=== PATIENT | male | born 1960 | race Caucasian/White ===

== ENCOUNTER 2016-04-18 13:26 | Inpatient (IN) | payer MEDICARE, OTHER ==
[2016-04-18 13:45] LABS: ALLEN'S TEST PASS; BEb 0.2 (+/- 2); TCO2 28.5 MMOL/L (23-27)
[2016-04-18 13:46] LABS: ABG Draw Site Right Radial
[2016-04-18 13:46] LABS: AUTOMATED BASOPHIL 0.8 % (0-2); AUTOMATED EOSINOPHIL 1.2 % (0-5); AUTOMATED LYMPH 14.4 % (17-44); AUTOMATED MONOCYTE 7.8 % (3-10); AUTOMATED NEUTROPHIL 75.8 % (45-76); MPV 6.9 fL (7.4-10.4)
[2016-04-18 14:02] LABS: BLOOD UREA NITROGEN 18 MG/DL (9-20); CALC CORRECTED 8.5 MG/DL (8.4-10.2); CALCIUM 8.4 MG/DL (8.4-10.2); CALCULATED OSMOLALITY 266 MOs/Kg (270-290); CHLORIDE 97 mEq/L (98-107); GLUCOSE 133 MG/DL (70-99); SODIUM LEVEL 136 mEq/L (137-146); TOTAL PROTEIN 7.3 G/DL (6.3-8.2)
[2016-04-18 14:07] LABS: PARTIAL THROMB. TIME 20.8 SEC (22-35)
[2016-04-18] MEDS ORDERED: ACETAMINOPHEN 325 MG/TAB TABLET PO ONE (14:38)
--- NOTE | 2016-04-18 14:54 | DIRPT ---
CLINICAL DATA: Shortness of breath. Accident drug overdose EXAM: PORTABLE CHEST 1 VIEW COMPARISON: March 02, 2016 FINDINGS: Port-A-Cath tip in superior vena cava. No pneumothorax. There is atelectatic change in the left base. The lungs elsewhere are clear. Heart size and pulmonary vascularity are normal. No adenopathy. IMPRESSION: Atelectasis left base. No edema or consolidation. No change in cardiac silhouette. Electronically Signed By: Mani Ojeda III, M.D. On: 04/18/2016 14:51
[2016-04-18] MEDS ORDERED: Levofloxacin 750 mg/150 ml D5W 750 MG/150 ML RTU IV ONE (14:58)
--- NOTE | 2016-04-18 15:00 | EDPRACDOC ---
- General Information Chief Complaint: Dyspnea/Resp distress Stated Complaint: OD Time Seen by Provider: 04/18/16 13:28 Information Source: Patient, Security Vehicle Patrol Officer Mode Of Arrival: Ambulance Home Medications: Home Medications Alprazolam [Xanax] 0.5 mg PO Q6H 04/18/16 Aspirin (Enteric Coated) [Ecotrin] 81 mg PO DAILY 04/18/16 Atorvastatin Calcium [Lipitor] 40 mg PO DAILY 04/18/16 Carvedilol [Coreg] 3.125 mg PO BID 04/18/16 Diltiazem HCl [Cartia Xt] 120 mg PO DAILY 04/18/16 Famotidine [Pepcid] 40 mg PO DAILY 04/18/16 Fluoxetine HCl 60 mg PO DAILY 04/18/16 Gabapentin 300 mg PO TID 04/18/16 Lisinopril [Prinivil] 5 mg PO DAILY 04/18/16 Olanzapine [Zyprexa] 10 mg PO DAILY 04/18/16 Oxycodone HCl/Acetaminophen [Percocet 10-325 mg Tablet] 1 tab PO Q6H 04/18/16 Spironolactone [Aldactone] 25 mg PO DAILY 04/18/16 Allergies/Adverse Reactions: Allergies Allergy/AdvReac Type Severity Reaction Status Date / Time No Known Allergies Allergy Verified 04/18/16 13:55 - History of Present Illness Onset: TODAY HPI: PT WAS RECENTLY D/C'D FROM [facility] FOR [facility]. HE HAD A RX FOR OXYCODONE AND TOOK 4 PILLS THIS AM. PT'S HOME HEALTH AID FOUND PT UNRESPONSIVE TODAY. THE PT IS AWAKE AND ALERT AND FEELS SOB. Shortness of Breath: Moderate Relevant History: Reports: None Cough: Reports: Non-productive Ear Symptoms: Reports: None SOB Worsens with: Reports: Exertion SOB Improves with: Reports: Nothing - Treatment Prior to ED Arrival Reported Medications/Treatment [employer] Meds/Treatments Given O2 via [facility] Treatment ALS ED Past Medical History - Patient Medical History Neurological History: Reports: Migraine Cardiac History: Reports: Hypertension, Congestive Heart Failure (Diastolic. ECHO: EF 60-65%. Impaired relaxation.), Hypercholesterolemia Respiratory History: Reports: Asthma, COPD, Pneumonia GI/ History: Reports: Renal (Kidney) Cancer (2011 Stage I renal cell carcinoma , in remission; L partial nephrectomy), Gastroesophageal Reflux Musculoskeletal History: Reports: Arthritis, Osteoarthritis Psychological History: Reports: Depression, Anxiety, Bipolar Disorder. Denies: Substance Use Disorder Systemic History: Reports: Cancer (Non-small cell lung cancer dx 2009 stage IIIA. Pancoast tumor. Kidney ca.) Surgical History: Reports: Hernia Surgery (Incarcerated umbilical hernia repair 2011, had postoperative seroma), Tonsillectomy/Adnoidectomy, Other (history of laparoscopic umbilical herniorrhaphy with mesh.) Date of Last Radiation Treatment: 03/2011 Date of Last Chemotherapy Date: 05/2011 - Family Medical History Reports: Hypertension (FATHER), Cancer (THROAT CA MOTHER, MGM - LEUKEMIA), Stroke (FATHER), Respiratory Disorders (Father- COPD) - Social Medical History Smoking Status: Heavy tobacco smoker (5 or more cigarettes/day or daily pipe/ cigar) Social History: Denies: Substance Use Disorder ETOH: None Substance Abuse: None Lives In: Home EDM Review of Systems - Review of Systems ROS Negative Except as Marked: Yes All systems reviewed and were negative except as marked Respiratory: Shortness of Breath - Physical Exam Constitutional: Alert (Awake), Distress Oriented to: Time, Person, Place Last recorded Vital Signs: Last Vital Signs Temp 100.9 F H 04/18/16 13:34 Pulse 99 04/18/16 14:14 Resp 24 04/18/16 14:14 BP 91/51 L 04/18/16 14:14 Pulse Ox 91 04/18/16 14:14 Oxygen Pulse Oxygen Saturation 91 O2 Device Venturi Mask Oxygen Flow Rate 3 Fraction of Inspired Oxygen ( 55 FIO2) - HEENT Head: Normal ( normocephalic) Eye Exam: Normal (PERRL, EOMI, Sclera white) Oropharynx: Normal (Pharynx:Moist without exudate,Gums-no swelling) ENT EAC: Normal TMJ: Normal Nose: No Symptoms Reported (septum midline) Neck: Normal (FROM, trachea at midline) - Respiratory/Cardiovascular Respiratory: Rhonchi, Tachypnea Cardiovascular: Tachycardia - GI Auscultation: Normal (NABS) Palpation: Normal (Soft,No rebound or guarding, non distended) Tenderness: Non tender Gonzalez's Sign: Negative - Musculoskeletal Back: Normal (Non-Tender) Extremities: Normal (Normal tone, Pulses 2+ No cyanosis or edema, FROM) - Integumentary Skin: Normal, Warm, Dry Lymphatics: Normal (no adenopathy) - Neurologic Memory Impaired: Normal Motor Function: Normal (Normal tone, Pulses 2+ No cyanosis or edema, FROM) Cranial Nerve: Normal (CN II-X11 intact sensation, strength 5/5) Cerebellar: Normal Mood Description: Normal Perception: Normal ED SOB MDM - Results Result Diagrams: 04/18/16 13:31 04/18/16 13:31 Results: WBC 16.5 xk/uL (3.8-10.8) H 04/18/16 13:31 RBC 3.68 xM/uL (4.70-6.10) L 04/18/16 13:31 Hgb 11.4 g/dL (14.0-18.0) L 04/18/16 13:31 Hct 33.7 % (42-52) L 04/18/16 13:31 MCV 92 fL (80-94) 04/18/16 13:31 MCH 31.0 pg (27-32) 04/18/16 13:31 MCHC 33.9 g/dl (33-36) 04/18/16 13:31 RDW 17.5 % (11.5-14.5) H 04/18/16 13:31 Plt Count 316 xk/uL (130-400) 04/18/16 13:31 MPV 6.9 fL (7.4-10.4) L 04/18/16 13:31 Neut % (Auto) 75.8 % (45-76) 04/18/16 13:31 Lymph % (Auto) 14.4 % (17-44) L 04/18/16 13:31 [place] % (Auto) 7.8 % (3-10) 04/18/16 13:31 Eos % (Auto) 1.2 % (0-5) 04/18/16 13:31 Baso % (Auto) 0.8 % (0-2) 04/18/16 13:31 Absolute Neuts (auto) 12.38 xk/uL (1.7-8.2) H 04/18/16 13:31 Absolute Lymphs (auto) 2.31 xk/uL (0.65-4.75) 04/18/16 13:31 PT 10.7 SEC (9.2-11.2) 04/18/16 13:31 INR 1.0 04/18/16 13:31 APTT 20.8 SEC (22-35) L 04/18/16 13:31 Puncture Site Right radial 04/18/16 13:40 pH 7.330 pH UNITS (7.35-7.45) L 04/18/16 13:40 pCO2 51.0 mmHg (35-45) H 04/18/16 13:40 pO2 41.0 mmHg (80-100) L* 04/18/16 13:40 HCO3 26.9 MMOL/L (22-26) H 04/18/16 13:40 Total CO2 28.5 MMOL/L (23-27) H 04/18/16 13:40 Base Excess 0.2 (+/- 2) 04/18/16 13:40 FiO2 % 21% 04/18/16 13:40 Specimen Drawn By Roude 04/18/16 13:40 Sodium 136 mEq/L (137-146) L 04/18/16 13:31 Potassium 5.1 mEq/L (3.5-5.1) 04/18/16 13:31 Chloride 97 mEq/L (98-107) L 04/18/16 13:31 Carbon Dioxide 27 mMOL/L (22-33) 04/18/16 13:31 Anion Gap 17 mEq/L (8-16) H 04/18/16 13:31 BUN 18 MG/DL (9-20) 04/18/16 13:31 Creatinine 1.40 MG/DL (0.66-1.25) H 04/18/16 13:31 Estimated GFR (MDRD) 53 mL/min (>=60) L 04/18/16 13:31 Glucose 133 MG/DL (70-99) H 04/18/16 13:31 Calculated Osmolality 266 MOs/Kg (270-290) L 04/18/16 13:31 Lactic Acid 2.8 mEq/L (0.7-2.1) H 04/18/16 13:31 Calcium 8.4 MG/DL (8.4-10.2) 04/18/16 13:31 Corrected Calcium 8.5 MG/DL (8.4-10.2) 04/18/16 13:31 Total Bilirubin 0.5 MG/DL (0.2-1.3) 04/18/16 13:31 AST 24 IU/L (17-59) 04/18/16 13:31 ALT 36 IU/L (21-72) 04/18/16 13:31 Alkaline Phosphatase 74 IU/L (38-126) 04/18/16 13:31 Troponin I < 0.01 ng/mL (<.04) 04/18/16 13:31 Total Protein 7.3 G/DL (6.3-8.2) 04/18/16 13:31 Albumin 3.9 G/DL (3.5-5.0) 04/18/16 13:31 Lab Results 04/18/16 04/18/16 04/18/16 13:40 13:31 13:31 WBC RBC Hgb Hct MCV MCH MCHC RDW Plt Count MPV Neut % (Auto) Lymph % (Auto) [place] % (Auto) Eos % (Auto) Baso % (Auto) Absolute Neuts (auto) Absolute Lymphs (auto) PT 10.7 INR 1.0 APTT 20.8 L Puncture Site Right radial pH 7.330 L pCO2 51.0 H pO2 41.0 L* HCO3 26.9 H Total CO2 28.5 H Base Excess 0.2 FiO2 % 21% Specimen Drawn By Roude Sodium Potassium Chloride Carbon Dioxide Anion Gap BUN Creatinine Estimated GFR (MDRD) Glucose Calculated Osmolality Lactic Acid 2.8 H Calcium Corrected Calcium Total Bilirubin AST ALT Alkaline Phosphatase Troponin I Total Protein Albumin 04/18/16 04/18/16 13:31 13:31 WBC 16.5 H RBC 3.68 L Hgb 11.4 L Hct 33.7 L MCV 92 MCH 31.0 MCHC 33.9 RDW 17.5 H Plt Count 316 MPV 6.9 L Neut % (Auto) 75.8 Lymph % (Auto) 14.4 L [place] % (Auto) 7.8 Eos % (Auto) 1.2 Baso % (Auto) 0.8 Absolute Neuts (auto) 12.38 H Absolute Lymphs (auto) 2.31 PT INR APTT Puncture Site pH pCO2 pO2 HCO3 Total CO2 Base Excess FiO2 % Specimen Drawn By Sodium 136 L Potassium 5.1 Chloride 97 L Carbon Dioxide 27 Anion Gap 17 H BUN 18 Creatinine 1.40 H Estimated GFR (MDRD) 53 L Glucose 133 H Calculated Osmolality 266 L Lactic Acid Calcium 8.4 Corrected Calcium 8.5 Total Bilirubin 0.5 AST 24 ALT 36 Alkaline Phosphatase 74 Troponin I < 0.01 Total Protein 7.3 Albumin 3.9 - EKG EKG #1 EKG Time: 14:28 -: Yes EKG interpreted by me Rate: bpm: 99 [place]: Normal Rhythm: NSR Block: None Hypertrophy: None ST: Normal Comparison: 02/25/16 - Diagnostic Imaging Chest Image interpreted by: Radiologist Diagnostic Imaging Comments: Atelectasis left base. No edema or consolidation. No change in cardiac silhouette - Departure Yes I personally saw and evaluated the patient. Disposition: Admit IP To This Hospital Condition: Fair Final Diagnosis: Acute bronchitis, Fever, Hypoxia, CRI (chronic renal insufficiency) Education/Counseling Given To: Patient, Family Member Education/Counseling Given Regarding: Diagnosis, Treatment Referrals: Joao Diane MD [Primary Care Provider] - One Week Decision to Admit Time: 15:08 Decision to admit date: 04/18/16 Decision to admit: from ED
[2016-04-18] MEDS ORDERED: NS 1,000 ML IV ONE (15:03)
[2016-04-18] MEDS ORDERED: ONDANSETRON HCL 4 MG/2 ML VIAL IV PRN (16:07)
[2016-04-18] MEDS ORDERED: BENZONATATE 100 MG PERLES PO PRN (16:07)
[2016-04-18] MEDS ORDERED: MAGNESIUM HYDROXIDE 30 ML BOTTLE PO PRN (16:07)
[2016-04-18] MEDS ORDERED: GLUCOSE (ORAL GEL) 15 GM TUBE PO PRN (16:07)
[2016-04-18] MEDS ORDERED: Docusate Sodium 100 MG CAP PO PRN (16:07)
[2016-04-18] MEDS ORDERED: GUAIFENESIN 200 MG/10 ML UDC PO PRN (16:07)
[2016-04-18] MEDS ORDERED: Albuterol/Ipratropium Neb 3 ML NEB NEB PRN (16:07)
[2016-04-18] MEDS ORDERED: GLUCAGON 1 MG VIAL SQ PRN (16:07)
[2016-04-18] MEDS ORDERED: DEXTROSE 25 GM/50 ML PFS IV PRN (16:07)
--- NOTE | 2016-04-18 16:07 | HISTPHYS ---
- Chief Complaint acute respiratory failure, copd exacerbation - History of Present Illness Mr. Azevedo is a 55-year-old white male with history of end-stage COPD and history of medical noncompliance who presented after being found unresponsive at home and severely hypoxic. He had a prolonged hospitalization at the end of January and was transferred to [facility] for long-term care. He was discharged home less than 1 week ago. Apparently per family he has been taking extra doses of his medications, most notably his pain medications over the last week since arriving at home. Today he was found to be unresponsive. EMS was activated and he was brought to the emergency room. In the emergency room he was lethargic. He was severely hypoxic with a PO2 of just 41. He was placed on BiPAP with some improvement in his alertness levels. X-ray show no acute abnormality but he appears acutely and critically ill and will be admitted to the intensive care unit for further evaluation and management. - Medical History Cardiac History: Reports: Hypertension, Congestive Heart Failure (Diastolic. ECHO: EF 60-65%. Impaired relaxation.), Hypercholesterolemia Respiratory History: Reports: Asthma, COPD, Pneumonia GI/ History: Reports: Renal (Kidney) Cancer (2011 Stage I renal cell carcinoma , in remission; L partial nephrectomy), Gastroesophageal Reflux Musculoskeletal History: Reports: Arthritis, Osteoarthritis Systemic History: Reports: Cancer (Non-small cell lung cancer dx 2009 stage IIIA. Pancoast tumor. Kidney ca.) Neurological History: Reports: Migraine Psychological History: Reports: Depression, Anxiety, Bipolar Disorder. Denies: Substance Use Disorder - Surgical History Reports: Hernia Surgery (Incarcerated umbilical hernia repair 2011, had postoperative seroma), Tonsillectomy/Adnoidectomy, Other (history of laparoscopic umbilical herniorrhaphy with mesh.) - Medictions/Allergies Allergies No Known Allergies Allergy (Verified 04/18/16 13:55) Home Medications Alprazolam [Xanax] 0.5 mg PO Q6H 04/18/16 Aspirin (Enteric Coated) [Ecotrin] 81 mg PO DAILY 04/18/16 Atorvastatin Calcium [Lipitor] 40 mg PO DAILY 04/18/16 Carvedilol [Coreg] 3.125 mg PO BID 04/18/16 Diltiazem HCl [Cartia Xt] 120 mg PO DAILY 04/18/16 Famotidine [Pepcid] 40 mg PO DAILY 04/18/16 Fluoxetine HCl 60 mg PO DAILY 04/18/16 Gabapentin 300 mg PO TID 04/18/16 Lisinopril [Prinivil] 5 mg PO DAILY 04/18/16 Olanzapine [Zyprexa] 10 mg PO DAILY 04/18/16 Oxycodone HCl/Acetaminophen [Percocet 10-325 mg Tablet] 1 tab PO Q6H 04/18/16 Spironolactone [Aldactone] 25 mg PO DAILY 04/18/16 - Family History Reports: Hypertension (FATHER), Cancer (THROAT CA MOTHER, MGM - LEUKEMIA), Stroke (FATHER), Respiratory Disorders (Father- COPD) - Social History Lives: Alone Smoking Status: Heavy tobacco smoker (5 or more cigarettes/day or daily pipe/ cigar) Social History: Denies: Alcohol Use, Substance Use Disorder - Review of Systems Yes Review of systems cannot be obtained due to the patient's medical condition (Altered mental status and unresponsive state) - Physical Exam Constitutional: Alert (Awake), Distress Oriented to: Time, Person, Place Exam: Last Vital Signs Temp 100.9 F H 04/18/16 13:34 Pulse 100 04/18/16 15:14 Resp 22 04/18/16 15:14 BP 124/79 04/18/16 15:14 Pulse Ox 89 L 04/18/16 15:14 Intake & Output 04/18/16 04/18/16 04/18/16 07:59 15:59 23:59 Patient's weight 130.635 kg - HEENT Head: Normal ( normocephalic) Eye: Normal (PERRL, EOMI, Sclera white) Oropharynx: Normal (Pharynx:Moist without exudate,Gums-no swelling) ENT EAC: Normal TMJ: Normal Nose: No Symptoms Reported (septum midline) - Respiratory/Cardiovascular Respiratory: Rhonchi, Tachypnea - GI Auscultation: Normal (NABS) Palpation: Normal (Soft,No rebound or guarding, non distended) Tenderness: Non tender - Musculoskeletal Back: Normal (Non-Tender) Extremities: Normal (Normal tone, Pulses 2+ No cyanosis or edema, FROM) - Integumentary Skin: Normal, Warm, Dry Lymphatics: Normal (no adenopathy) - Neurologic Memory Impaired: Normal Cerebellar: Normal Mood Description: Normal Perception: Normal - Focused CV Perfusion Exam Vital Signs: Last Vital Signs Temp 100.9 F H 04/18/16 13:34 Pulse 100 04/18/16 15:14 Resp 22 04/18/16 15:14 BP 124/79 04/18/16 15:14 Pulse Ox 89 L 04/18/16 15:14 - Lab Results Laboratory Results - last 24 hr 04/18/16 04/18/16 04/18/16 13:31 13:31 13:31 WBC 16.5 H RBC 3.68 L Hgb 11.4 L Hct 33.7 L MCV 92 MCH 31.0 MCHC 33.9 RDW 17.5 H Plt Count 316 MPV 6.9 L Neut % (Auto) 75.8 Lymph % (Auto) 14.4 L [place] % (Auto) 7.8 Eos % (Auto) 1.2 Baso % (Auto) 0.8 Absolute Neuts (auto) 12.38 H Absolute Lymphs (auto) 2.31 PT 10.7 INR 1.0 APTT 20.8 L Puncture Site pH pCO2 pO2 HCO3 Total CO2 Base Excess FiO2 % Specimen Drawn By Sodium 136 L Potassium 5.1 Chloride 97 L Carbon Dioxide 27 Anion Gap 17 H BUN 18 Creatinine 1.40 H Estimated GFR (MDRD) 53 L Glucose 133 H Calculated Osmolality 266 L Lactic Acid Calcium 8.4 Corrected Calcium 8.5 Total Bilirubin 0.5 AST 24 ALT 36 Alkaline Phosphatase 74 Troponin I < 0.01 Total Protein 7.3 Albumin 3.9 Urine Color Urine Clarity Urine pH Ur Specific [place] Urine Protein Urine Glucose (UA) Urine Ketones Urine Occult Blood Urine Nitrite Urine Bilirubin Urine Urobilinogen Ur Leukocyte Esterase Urine RBC Urine WBC Ur Epithelial Cells Urine Bacteria Hyaline Casts Urine Mucus Urine Opiates Screen Ur Oxycodone Screen Urine Methadone Screen Ur Barbiturates Screen Ur Tricyclics Screen Ur Phencyclidine Scrn Ur Amphetamines Screen U Methamphetamines Scrn Urine MDMA Screen U Benzodiazepines Scrn Urine Cocaine Screen Ur THC Screen 04/18/16 04/18/16 04/18/16 13:31 13:40 16:05 WBC RBC Hgb Hct MCV MCH MCHC RDW Plt Count MPV Neut % (Auto) Lymph % (Auto) [place] % (Auto) Eos % (Auto) Baso % (Auto) Absolute Neuts (auto) Absolute Lymphs (auto) PT INR APTT Puncture Site Right radial pH 7.330 L pCO2 51.0 H pO2 41.0 L* HCO3 26.9 H Total CO2 28.5 H Base Excess 0.2 FiO2 % 21% Specimen Drawn By Roude Sodium Potassium Chloride Carbon Dioxide Anion Gap BUN Creatinine Estimated GFR (MDRD) Glucose Calculated Osmolality Lactic Acid 2.8 H Calcium Corrected Calcium Total Bilirubin AST ALT Alkaline Phosphatase Troponin I Total Protein Albumin Urine Color Urine Clarity Urine pH Ur Specific [place] Urine Protein Urine Glucose (UA) Urine Ketones Urine Occult Blood Urine Nitrite Urine Bilirubin Urine Urobilinogen Ur Leukocyte Esterase Urine RBC Urine WBC Ur Epithelial Cells Urine Bacteria Hyaline Casts Urine Mucus Urine Opiates Screen Neg Ur Oxycodone Screen *positive* H Urine Methadone Screen Neg Ur Barbiturates Screen Neg Ur Tricyclics Screen Neg Ur Phencyclidine Scrn Neg Ur Amphetamines Screen Neg U Methamphetamines Scrn Neg Urine MDMA Screen Neg U Benzodiazepines Scrn *positive* H Urine Cocaine Screen Neg Ur THC Screen Neg 04/18/16 16:05 WBC RBC Hgb Hct MCV MCH MCHC RDW Plt Count MPV Neut % (Auto) Lymph % (Auto) [place] % (Auto) Eos % (Auto) Baso % (Auto) Absolute Neuts (auto) Absolute Lymphs (auto) PT INR APTT Puncture Site pH pCO2 pO2 HCO3 Total CO2 Base Excess FiO2 % Specimen Drawn By Sodium Potassium Chloride Carbon Dioxide Anion Gap BUN Creatinine Estimated GFR (MDRD) Glucose Calculated Osmolality Lactic Acid Calcium Corrected Calcium Total Bilirubin AST ALT Alkaline Phosphatase Troponin I Total Protein Albumin Urine Color Yellow Urine Clarity Clear Urine pH 5.0 Ur Specific [place] 1.035 Urine Protein 1+ H Urine Glucose (UA) 2+ Urine Ketones Neg Urine Occult Blood Neg Urine Nitrite Neg Urine Bilirubin Neg Urine Urobilinogen 0.2 Ur Leukocyte Esterase Neg Urine RBC 0-2 Urine WBC 0-2 Ur Epithelial Cells Occ Urine Bacteria Few Hyaline Casts 10-20 H Urine Mucus Occ Urine Opiates Screen Ur Oxycodone Screen Urine Methadone Screen Ur Barbiturates Screen Ur Tricyclics Screen Ur Phencyclidine Scrn Ur Amphetamines Screen U Methamphetamines Scrn Urine MDMA Screen U Benzodiazepines Scrn Urine Cocaine Screen Ur THC Screen - Assessment (1) Acute respiratory failure J96.00 - ACUTE RESPIRATORY FAILURE, UNSP W HYPOXIA OR HYPERCAPNIA Acute Present on Admission: Yes Qualifiers: Respiratory failure complication: hypoxia Qualified Code(s): J96.01 - Acute respiratory failure with hypoxia Recurrent COPD exacerbation. Just discharged from long-term care facility. Known history of narcotic addiction questionable compliance with medications. Was found unresponsive on the floor. Family states he has been taking extra doses of his medications. We will admit to the intensive care unit. IV steroids, IV antibiotics, nebulizer treatments and pulmonary toilet. Currently on BiPAP and likely will need prolonged course. May need intubation (2) Acute exacerbation of chronic obstructive airways disease J44.1 - CHRONIC OBSTRUCTIVE PULMONARY DISEASE W (ACUTE) EXACERBATION Acute Present on Admission: Yes Severe and on BiPAP. Admit to the intensive care unit. IV steroids, IV antibiotics, nebulizer treatments and pulmonary toilet. (3) Acute bronchitis J20.9 - ACUTE BRONCHITIS, UNSPECIFIED Acute Present on Admission: Yes Increased cough and congestion. IV antibiotics and pulmonary toilet. (4) GERD (gastroesophageal reflux disease) K21.9 - GASTRO-ESOPHAGEAL REFLUX DISEASE WITHOUT ESOPHAGITIS Acute Present on Admission: Yes Qualifiers: Esophagitis presence: without esophagitis Qualified Code(s): K21.9 - Gastro -esophageal reflux disease without esophagitis Continue PPI (5) Dyslipidemia E78.5 - HYPERLIPIDEMIA, UNSPECIFIED Chronic Present on Admission: Yes On Lipitor Case Care Discussed with: Patient, Consultants, Nursing Staff, Respiratory Therapy Total Time: 1 hour 20 minutes Critical Care: Yes
[2016-04-18] MEDS ORDERED: PIPERACILLIN AND TAZOBACTAM 3.375 GM in D5W 100 ML IV SCH (16:12)
[2016-04-18 16:18] LABS: ALL NEG? NO
[2016-04-18 16:28] LABS: MDMA* NEG (NEGATIVE); METHAMPHETAMINES NEG (NEGATIVE); OXYCODONE *POSITIVE* (NEGATIVE)
[2016-04-18 16:42] LABS: RBC/URINE 0-2 (0-2); WBC/URINE 0-2 (0-2)
[2016-04-18 16:44] LABS: LEUKOCYTES/URINE NEG (NEGATIVE); NITRITE/URINE NEG (NEGATIVE); URINE OCCULT BLOOD NEG (NEG/TRACE)
[2016-04-18] MEDS: METHYLPREDNISOLONE 125 MG/2 ML VIAL IV SCH (17:54)
[2016-04-18] MEDS: NS 1,000 ML IV SCH (17:55)
[2016-04-18] MEDS: REGULAR INSULIN 100 UNITS/ML - 3 ML VIAL SQ SCH ×2 (18:03→22:02)
[2016-04-18] MEDS: PIPERACILLIN AND TAZOBACTAM 4.5 GM in D5W 100 ML IV SCH (18:15)
[2016-04-18] MEDS ORDERED: Vaccine Screening Complete SCH (20:00)
[2016-04-18] MEDS: Albuterol/Ipratropium Neb 3 ML NEB NEB SCH (20:28)
[2016-04-18] MEDS: CHLORHEXIDINE (HIBICLENS) 4 OZ BOTTLE TOP SCH (21:18)
[2016-04-18] MEDS: ENOXAPARIN 80 MG/0.8 ML PFS SQ SCH (21:22)
[2016-04-18] MEDS: GABAPENTIN 300 MG CAP PO SCH (21:22)
[2016-04-18] MEDS: ZOLPIDEM TARTRATE 5 MG TAB PO PRN (21:22)
[2016-04-18] MEDS: CARVEDILOL 3.125 MG TAB PO SCH (22:01)
[2016-04-19] MEDS: PIPERACILLIN AND TAZOBACTAM 4.5 GM in D5W 100 ML IV SCH ×4 (00:24→17:22)
[2016-04-19] MEDS: METHYLPREDNISOLONE 125 MG/2 ML VIAL IV SCH ×5 (00:24→23:53)
[2016-04-19] MEDS: Albuterol/Ipratropium Neb 3 ML NEB NEB SCH ×4 (01:47→21:48)
[2016-04-19 04:23] LABS: ALLEN'S TEST PASS; BEb 1.9 (+/- 2); TCO2 34.1 MMOL/L (23-27)
[2016-04-19 04:49] LABS: ABG Draw Site Right Radial
[2016-04-19 04:51] LABS: BI-PAP 14/6 cm H2O
[2016-04-19] MEDS: REGULAR INSULIN 100 UNITS/ML - 3 ML VIAL SQ SCH ×4 (06:18→21:08)
[2016-04-19] MEDS: GABAPENTIN 300 MG CAP PO SCH ×3 (06:25→20:47)
[2016-04-19 07:10] LABS: BLOOD UREA NITROGEN 15 MG/DL (9-20); CALCIUM 8.8 MG/DL (8.4-10.2); CALCULATED OSMOLALITY 275 MOs/Kg (270-290); CHLORIDE 101 mEq/L (98-107); GLUCOSE 184 MG/DL (70-99); SODIUM LEVEL 140 mEq/L (137-146)
[2016-04-19 07:17] LABS: AUTOMATED BASOPHIL 0.3 % (0-2); AUTOMATED LYMPH 9.7 % (17-44); AUTOMATED MONOCYTE 1.6 % (3-10); AUTOMATED NEUTROPHIL 88.4 % (45-76); MPV 7.2 fL (7.4-10.4)
--- NOTE | 2016-04-19 07:50 | GENMEDPROG ---
Chief Complaint: More hypercapneic today. Very alert on bipap. Wants to eat. More wheezing and ronchi Notes Reviewed: Yes Events from last night noted and discussed with Clinical Staff Current Medication List: Reviewed Currently: Reports: Cough, Wheezing, CHILD, SOB DVT Prophylaxis: Yes - Physical Examination Vital Signs and I&O: Last Vital Signs Temp 98 F 04/19/16 07:00 Pulse 101 04/19/16 07:00 Resp 25 H 04/19/16 07:00 BP 122/66 04/19/16 07:00 Pulse Ox 100 04/19/16 07:00 Oxygen Pulse Oxygen Saturation 100 O2 Device BiPAP Oxygen Flow Rate Fraction of Inspired Oxygen ( 60 FIO2) Intake & Output 04/16/16 04/17/16 04/18/16 04/19/16 23:59 23:59 23:59 23:59 Intake Total 657 744 Output Total 1600 1550 Balance -943 -806 Patient's weight 130 kg 127.913 kg General: Alert, Oriented x3, Moderate distress. negative: Well appearing ( Acutely ill-appearing) HEENT: Normal, PERRLA, EOMI, Anicteric Sclera Neck: Non-tender, Full range of motion, Normal Trachea alignment. negative: JVD Lymphatics: Normal (no adenopathy) Respiratory: Diminished, Rhonchi, Tachypnea, Wheezes Cardiovascular: Regular rate and rhythm, No Gallops,Rubs/Murmurs GI: Soft, No hepatospenomegaly, No masses, Obese Extremities/Musculoskeletal: Normal pulses. negative: Tenderness, Swelling, Edema Skin: Warm,Dry and Intact, No rashes, No breakdown, No significant lesion Neurological: Normal speech, Strength at 5/5 X4 ext, Normal tone, Cranial nerves 3-12 NL Psych/Mental Status: Cooperative Lab/DI/Studies Reviewed: Laboratory Results - last 24 hr 04/18/16 04/18/16 04/18/16 18:02 19:55 21:58 WBC RBC Hgb Hct MCV MCH MCHC RDW Plt Count MPV Neut % (Auto) Lymph % (Auto) [place] % (Auto) Eos % (Auto) Baso % (Auto) Absolute Neuts (auto) Absolute Lymphs (auto) Puncture Site pH pCO2 pO2 HCO3 Total CO2 Base Excess FiO2 % Mode BiPAP Specimen Drawn By Sodium Potassium Chloride Carbon Dioxide Anion Gap BUN Creatinine Estimated GFR (MDRD) Glucose POC Capillary Glucose 143 H 178 H Calculated Osmolality Calcium Troponin I < 0.01 04/19/16 04/19/16 04/19/16 04:15 06:13 06:15 WBC RBC Hgb Hct MCV MCH MCHC RDW Plt Count MPV Neut % (Auto) Lymph % (Auto) [place] % (Auto) Eos % (Auto) Baso % (Auto) Absolute Neuts (auto) Absolute Lymphs (auto) Puncture Site Right radial pH 7.230 L* pCO2 76.0 H* pO2 71.0 L HCO3 31.8 H Total CO2 34.1 H Base Excess 1.9 FiO2 % 60 Mode BiPAP 14/6 Specimen Drawn By [facility] Sodium 140 Potassium 5.2 H Chloride 101 Carbon Dioxide 30 Anion Gap 14 BUN 15 Creatinine 0.80 Estimated GFR (MDRD) > 60 Glucose 184 H POC Capillary Glucose 184 H Calculated Osmolality 275 Calcium 8.8 Troponin I 04/19/16 04/19/16 04/19/16 06:15 11:20 11:33 WBC 11.8 H RBC 3.85 L Hgb 11.8 L Hct 35.4 L MCV 92 MCH 30.6 MCHC 33.3 RDW 17.7 H Plt Count 316 MPV 7.2 L Neut % (Auto) 88.4 H Lymph % (Auto) 9.7 L [place] % (Auto) 1.6 L Eos % (Auto) 0.0 Baso % (Auto) 0.3 Absolute Neuts (auto) 10.38 H Absolute Lymphs (auto) 1.06 Puncture Site pH pCO2 pO2 HCO3 Total CO2 Base Excess FiO2 % Mode BiPAP Specimen Drawn By Sodium Potassium Chloride Carbon Dioxide Anion Gap BUN Creatinine Estimated GFR (MDRD) Glucose POC Capillary Glucose 180 H 184 H Calculated Osmolality Calcium Troponin I 04/19/16 17:08 WBC RBC Hgb Hct MCV MCH MCHC RDW Plt Count MPV Neut % (Auto) Lymph % (Auto) [place] % (Auto) Eos % (Auto) Baso % (Auto) Absolute Neuts (auto) Absolute Lymphs (auto) Puncture Site pH pCO2 pO2 HCO3 Total CO2 Base Excess FiO2 % Mode BiPAP Specimen Drawn By Sodium Potassium Chloride Carbon Dioxide Anion Gap BUN Creatinine Estimated GFR (MDRD) Glucose POC Capillary Glucose 181 H Calculated Osmolality Calcium Troponin I - Assessment (1) Acute respiratory failure Acute J96.00 - ACUTE RESPIRATORY FAILURE, UNSP W HYPOXIA OR HYPERCAPNIA Qualifiers: Respiratory failure complication: hypoxia Qualified Code(s): J96.01 - Acute respiratory failure with hypoxia Comment/Plan: More alert today. However more hypercapnia. Continue BiPAP. IV steroids, IV antibiotics, nebulizer treatments and pulmonary toilet. Have asked Dr. Chakraborty with Pulmonary Critical Care to assist in his management (2) Acute exacerbation of chronic obstructive airways disease Acute J44.1 - CHRONIC OBSTRUCTIVE PULMONARY DISEASE W (ACUTE) EXACERBATION Comment/Plan: Severe on BiPAP. Continue ICU care IV steroids, IV antibiotics, nebulizer treatments and pulmonary toilet. (3) Acute bronchitis Acute J20.9 - ACUTE BRONCHITIS, UNSPECIFIED Comment/Plan: Increased cough and congestion. IV antibiotics and pulmonary toilet. (4) GERD (gastroesophageal reflux disease) Acute K21.9 - GASTRO-ESOPHAGEAL REFLUX DISEASE WITHOUT ESOPHAGITIS Qualifiers: Esophagitis presence: without esophagitis Qualified Code(s): K21.9 - Gastro -esophageal reflux disease without esophagitis Comment/Plan: Continue PPI (5) Dyslipidemia Chronic E78.5 - HYPERLIPIDEMIA, UNSPECIFIED Comment/Plan: On Lipitor Case Care Discussed with: Patient, Consultants, Nursing Staff, Physical Therapy , Resource Management, Respiratory Therapy, [place] Total Time: 45 minutes Critical Care: Yes
[2016-04-19] MEDS ORDERED: FLU VACCINE (Afluria) 0.5 ML DOSE IM ONE (08:00)
[2016-04-19] MEDS: NS 1,000 ML IV SCH ×2 (08:12→17:18)
[2016-04-19] MEDS: FAMOTIDINE 20 MG TAB PO SCH (08:47)
[2016-04-19] MEDS: OLANZAPINE 5 MG TAB PO SCH (08:48)
[2016-04-19] MEDS: FLUOXETINE 20 MG CAP PO SCH (08:48)
[2016-04-19] MEDS: SPIRONOLACTONE 25 MG TAB PO SCH (08:48)
[2016-04-19] MEDS: DILTIAZEM HCL 120 MG CAPSULE.CR PO SCH (08:49)
[2016-04-19] MEDS: LISINOPRIL 5 MG TAB PO SCH (08:50)
[2016-04-19] MEDS: CARVEDILOL 3.125 MG TAB PO SCH ×2 (08:50→20:47)
[2016-04-19] MEDS: ATORVASTATIN 40 MG TAB PO SCH (08:50)
[2016-04-19] MEDS ORDERED: FAMOTIDINE 40 MG PO SCH (09:00)
[2016-04-19] MEDS ORDERED: OLANZAPINE 10 MG PO SCH (09:00)
[2016-04-19] MEDS ORDERED: Levofloxacin 750 mg/150 ml D5W 750 MG/150 ML RTU IV SCH (16:00)
[2016-04-19] MEDS: ENOXAPARIN 80 MG/0.8 ML PFS SQ SCH (17:22)
[2016-04-19] MEDS: ZOLPIDEM TARTRATE 5 MG TAB PO PRN ×2 (21:08→22:20)
[2016-04-19] MEDS: CHLORHEXIDINE (HIBICLENS) 4 OZ BOTTLE TOP SCH (21:29)
[2016-04-20] MEDS: PIPERACILLIN AND TAZOBACTAM 4.5 GM in D5W 100 ML IV SCH ×4 (00:39→17:29)
[2016-04-20] MEDS: Albuterol/Ipratropium Neb 3 ML NEB NEB SCH ×4 (01:31→20:59)
--- NOTE | 2016-04-20 01:58 | HIMCONS ---
DATE OF CONSULT: REQUESTING PHYSICIAN: Dr. Dutton. REASON FOR CONSULTATION: Respiratory failure. HISTORY OF PRESENT ILLNESS: The patient is a 55-year-old morbidly obese white male with past medical history significant for end-stage COPD with noncompliant to most of his treatment, was found unresponsive at home and was extremely hypoxic with PO2 of 41 in the emergency room. The patient has been in [facility] in the recent past and was discharged home less than a week ago and has been taking extra doses of his pain medication. The patient was brought to the emergency room and he has been was placed on BiPAP, was found to be critically ill and therefore was admitted to the ICU. He has been waking up now with the BiPAP and has been wanting to eat something. PAST MEDICAL HISTORY: Significant for CHF, hypotension, hypercholesterolemia, history of COPD, history of cancers, stage I renal cell carcinoma status post left partial nephrectomy, gastroesophageal reflux disease, history of osteoarthritis, non-small cell lung cancer in 2009 stage IIIA Pancoast tumor, kidney cancer, history of migraines, depression, anxiety. SURGICAL HISTORY: Significant for hernia surgery, umbilical hernia in 2011; tonsillectomy; adenoidectomy; laparoscopic umbilical herniorrhaphy with mesh. ALLERGIES: NO KNOWN DRUG ALLERGIES. MEDICATIONS: In the chart are noted. FAMILY HISTORY: Father had a stroke and COPD with hypertension. Mother had throat cancer and leukemia. SOCIAL HISTORY: The patient has been a smoker most of his adult life. No history of alcohol or drug abuse. REVIEW OF SYSTEMS: Entire review of systems is negative except for as mentioned in the history of present illness. EXAMINATION: VITAL SIGNS: Temperature is 97.6 degrees Fahrenheit, pulse is 106, respiratory rate 21, blood pressure 113/77, pulse ox 100% on 45%BiPAP. CHEST: Decreased bilateral air entry. No wheezing. HEART: S1, S2. Regular. No murmur. EXTREMITIES: No clubbing, cyanosis, or edema. ABDOMEN: Soft and nontender. Bowel sounds present. Hepatosplenomegaly is absent. NEURO: The patient moving all extremities. LABORATORY DATA: White count is 11.8, hemoglobin 10.8, hematocrit 35.4 and platelets are 316. Blood gas done earlier this morning pH was 7.23, pCO2 was 76, PO2 was 71 on 60% oxygen, 14 x 6 BiPAP. Sodium 140, potassium 5.2, chloride 101, CO2 of 30, BUN is 15, creatinine 0.8, glucose 184. IMAGING: Chest x-ray seen personally. The patient seems to have hyperinflation with significant peribronchial coughing and evidence of bronchitis. No acute infiltrate was noted. Possible left basal atelectasis. IMPRESSION: 1. Hxpek-os-ieihtal respiratory failure. 2. Chronic obstructive pulmonary disease with exacerbation. 3. Possible MRSA pneumonia. PLAN: The patient is on Levaquin and Zosyn. At this time, I would continue that. He is on Solu- Medrol 60 mg IV q.6 hours and I would continue that. We will try to cut it down in the morning. PCR is positive for MRSA and therefore, I would start the patient on vancomycin since he has had a long stay in [facility] and could be having MRSA pneumonia. We will repeat a chest x-ray and blood gas in the morning. I will see the patient can be off BiPAP for a little while and can be fed and then he would be placed back on BiPAP within an hour after his meals. He needs the noninvasive ventilation as the patient is critically ill and could end up being intubated. Continue DVT and GI prophylaxis on this patient and continue other supportive care. Time spent approximately 35 minutes. [id number]
[2016-04-20 05:33] LABS: ALLEN'S TEST PASS; BEb 4.5 (+/- 2); TCO2 34.1 MMOL/L (23-27)
[2016-04-20 05:34] LABS: ABG Draw Site Right Radial; ABG Draw Tech BKL
[2016-04-20 05:35] LABS: BI-PAP 14/8 RATE 10 cm H2O
[2016-04-20] MEDS: NS 1,000 ML IV SCH (05:43)
[2016-04-20] MEDS: GABAPENTIN 300 MG CAP PO SCH ×3 (05:44→21:37)
[2016-04-20] MEDS: METHYLPREDNISOLONE 125 MG/2 ML VIAL IV SCH (05:44)
[2016-04-20] MEDS: REGULAR INSULIN 100 UNITS/ML - 3 ML VIAL SQ SCH ×4 (05:44→21:37)
[2016-04-20 06:06] LABS: AUTOMATED BASOPHIL 0.4 % (0-2); AUTOMATED LYMPH 6.6 % (17-44); AUTOMATED MONOCYTE 3.5 % (3-10); AUTOMATED NEUTROPHIL 89.5 % (45-76); MPV 7.6 fL (7.4-10.4)
[2016-04-20 06:17] LABS: BLOOD UREA NITROGEN 17 MG/DL (9-20); CALCIUM 8.7 MG/DL (8.4-10.2); CALCULATED OSMOLALITY 279 MOs/Kg (270-290); CHLORIDE 99 mEq/L (98-107); GLUCOSE 242 MG/DL (70-99); SODIUM LEVEL 140 mEq/L (137-146)
--- NOTE | 2016-04-20 07:53 | GENMEDPROG ---
Chief Complaint: Some better today. Has been able to come off BiPAP for short period time. Requests diet. Less congested on exam. Still moderate distress Notes Reviewed: Yes Events from last night noted and discussed with Clinical Staff Current Medication List: Reviewed Currently: Reports: Cough, Wheezing, CHILD, SOB. Denies: Nausea and Vomiting, Abdominal Pain DVT Prophylaxis: Yes - Physical Examination Vital Signs and I&O: Last Vital Signs Temp 98.0 F 04/20/16 03:00 Pulse 101 04/20/16 06:00 Resp 20 04/20/16 05:00 BP 119/70 04/20/16 06:00 Pulse Ox 97 04/20/16 06:00 Oxygen Pulse Oxygen Saturation 97 O2 Device BiPAP Oxygen Flow Rate 10 Fraction of Inspired Oxygen ( 45 FIO2) Intake & Output 04/17/16 04/18/16 04/19/16 04/20/16 23:59 23:59 23:59 23:59 Intake Total 657 2109 724 Output Total 1600 3000 400 Balance [phone] Patient's weight 130 kg 127.913 kg 126.598 kg General: Alert, Oriented x3, Cooperative, Moderate distress. negative: Well appearing (Acutely ill-appearing) HEENT: Normal, PERRLA, EOMI, Anicteric Sclera Neck: Non-tender, Full range of motion, Normal Trachea alignment. negative: JVD Lymphatics: Normal (no adenopathy) Respiratory: Diminished, Rhonchi, Tachypnea, Wheezes (Fewer wheezes today) Cardiovascular: Regular rate and rhythm, No Gallops,Rubs/Murmurs GI: Soft, No hepatospenomegaly, No masses, Obese Extremities/Musculoskeletal: Normal pulses. negative: Tenderness, Swelling, Edema Skin: Warm,Dry and Intact, No rashes, No breakdown, No significant lesion Neurological: Normal speech, Strength at 5/5 X4 ext, Normal tone, Cranial nerves 3-12 NL Psych/Mental Status: Cooperative Lab/DI/Studies Reviewed: Laboratory Results - last 24 hr 04/19/16 04/19/16 04/19/16 11:20 11:33 17:08 WBC RBC Hgb Hct MCV MCH MCHC RDW Plt Count MPV Neut % (Auto) Lymph % (Auto) Smith % (Auto) Eos % (Auto) Baso % (Auto) Absolute Neuts (auto) Absolute Lymphs (auto) Puncture Site pH pCO2 pO2 HCO3 Total CO2 Base Excess FiO2 % Mode BiPAP Specimen Drawn By Sodium Potassium Chloride Carbon Dioxide Anion Gap BUN Creatinine Estimated GFR (MDRD) Glucose POC Capillary Glucose 180 H 184 H 181 H Calculated Osmolality Calcium 04/19/16 04/20/16 04/20/16 20:46 05:23 05:25 WBC RBC Hgb Hct MCV MCH MCHC RDW Plt Count MPV Neut % (Auto) Lymph % (Auto) Smith % (Auto) Eos % (Auto) Baso % (Auto) Absolute Neuts (auto) Absolute Lymphs (auto) Puncture Site pH pCO2 pO2 HCO3 Total CO2 Base Excess FiO2 % Mode BiPAP Specimen Drawn By Sodium 140 Potassium 4.4 Chloride 99 Carbon Dioxide 31 Anion Gap 14 BUN 17 Creatinine 0.80 Estimated GFR (MDRD) > 60 Glucose 242 H POC Capillary Glucose 175 H 249 H Calculated Osmolality 279 Calcium 8.7 04/20/16 04/20/16 05:25 05:30 WBC 13.0 H RBC 3.56 L Hgb 11.0 L Hct 32.7 L MCV 92 MCH 30.9 MCHC 33.7 RDW 17.3 H Plt Count 329 MPV 7.6 Neut % (Auto) 89.5 H Lymph % (Auto) 6.6 L Smith % (Auto) 3.5 Eos % (Auto) 0.0 Baso % (Auto) 0.4 Absolute Neuts (auto) 11.57 H Absolute Lymphs (auto) 0.78 Puncture Site Right radial pH 7.330 L pCO2 61.0 H pO2 103.0 H HCO3 32.2 H Total CO2 34.1 H Base Excess 4.5 H FiO2 % 55 Mode BiPAP 14/8 rate 10 Specimen Drawn By Bkl Sodium Potassium Chloride Carbon Dioxide Anion Gap BUN Creatinine Estimated GFR (MDRD) Glucose POC Capillary Glucose Calculated Osmolality Calcium - Assessment (1) Acute respiratory failure Acute J96.00 - ACUTE RESPIRATORY FAILURE, UNSP W HYPOXIA OR HYPERCAPNIA Qualifiers: Respiratory failure complication: hypoxia Qualified Code(s): J96.01 - Acute respiratory failure with hypoxia Comment/Plan: Some better today but remains acutely ill. Should be able to have some periods off of BiPAP throughout the course the day but will still need to wear it frequently. Continue aggressive ICU care. Continue IV steroids. Increase activity as tolerated. Continue antibiotics and nebulizer treatments. Acidosis has improved some (2) Acute exacerbation of chronic obstructive airways disease Acute J44.1 - CHRONIC OBSTRUCTIVE PULMONARY DISEASE W (ACUTE) EXACERBATION Comment/Plan: Slightly better today. Should be able to tolerate BiPAP off and on. Continue ICU care IV steroids, IV antibiotics, nebulizer treatments and pulmonary toilet. (3) Acute bronchitis Acute J20.9 - ACUTE BRONCHITIS, UNSPECIFIED Comment/Plan: Increased cough and congestion. IV antibiotics and pulmonary toilet. (4) GERD (gastroesophageal reflux disease) Acute K21.9 - GASTRO-ESOPHAGEAL REFLUX DISEASE WITHOUT ESOPHAGITIS Qualifiers: Esophagitis presence: without esophagitis Qualified Code(s): K21.9 - Gastro -esophageal reflux disease without esophagitis Comment/Plan: Continue PPI (5) Dyslipidemia Chronic E78.5 - HYPERLIPIDEMIA, UNSPECIFIED Comment/Plan: On Lipitor Case Care Discussed with: Patient, Consultants, Nursing Staff, Physical Therapy , Resource Management, Respiratory Therapy, Handicraft Or Hobby Shop Manager Total Time: 45 minutes Critical Care: Yes
[2016-04-20] MEDS: ATORVASTATIN 40 MG TAB PO SCH (08:01)
[2016-04-20] MEDS: LISINOPRIL 5 MG TAB PO SCH (08:01)
[2016-04-20] MEDS: CARVEDILOL 3.125 MG TAB PO SCH ×2 (08:01→21:37)
[2016-04-20] MEDS: DILTIAZEM HCL 120 MG CAPSULE.CR PO SCH (08:01)
[2016-04-20] MEDS: OLANZAPINE 5 MG TAB PO SCH (08:01)
[2016-04-20] MEDS: SPIRONOLACTONE 25 MG TAB PO SCH (08:01)
[2016-04-20] MEDS: FLUOXETINE 20 MG CAP PO SCH (08:02)
[2016-04-20] MEDS: FAMOTIDINE 20 MG TAB PO SCH (08:02)
--- NOTE | 2016-04-20 08:31 | DIRPT ---
CLINICAL DATA: Respiratory failure. EXAM: PORTABLE CHEST 1 VIEW COMPARISON: 03/02/2016 and 04/18/2016. FINDINGS: 0554 hours. Persistent lordotic positioning. Left IJ Port-A-Cath tip is unchanged at the lower SVC level. The heart size and mediastinal contours are stable. There is stable mild atelectasis at both lung bases. No edema, confluent airspace opacity or significant pleural effusion. IMPRESSION: Stable mild basilar atelectasis. No acute cardiopulmonary process. Electronically Signed By: Mani Leon M.D. On: 04/20/2016 08:29
--- NOTE | 2016-04-20 09:26 | PCM.PULM ---
Chief Complaint: Uneventful overnight Breathing is improving slowly Uses BIPAP prn and on VM this morning. Medication list reviewed:yes Notes reviewed:yes, Events from last night noted and discussed with Clinical Staff DVT prophylaxis:yes - Physical Examination Vital Signs and I&O: Last Vital Signs Temp 97.8 F 04/20/16 07:00 Pulse 104 04/20/16 08:00 Resp 20 04/20/16 05:00 BP 159/93 04/20/16 08:00 Pulse Ox 97 04/20/16 08:00 Oxygen Pulse Oxygen Saturation 97 O2 Device BiPAP Oxygen Flow Rate 10 Fraction of Inspired Oxygen ( 45 FIO2) Intake & Output 04/17/16 04/18/16 04/19/16 04/20/16 23:59 23:59 23:59 23:59 Intake Total 657 2109 724 Output Total 1600 3000 400 Balance -[phone] Patient's weight 130 kg 127.913 kg 126.598 kg General: Alert, Oriented x3, Cooperative, No acute distress, Well appearing, Obese, Weakness, Fatigue Respiratory: Diminished Cardiovascular: Regular rate, Regular rate and rhythm, Normal S1, No Gallops, Rubs/Murmurs, Normal S2 GI: Normal bowel sounds, Soft, Non tender, No masses, Obese Extremities/Musculoskeletal: Normal pulses Skin: Warm,Dry and Intact, No rashes, No breakdown, No significant lesion Neurological: Normal speech, Cranial nerves 3-12 NL Psych/Mental Status: Appropriate, Cooperative Result Diagrams: 04/20/16 05:25 04/20/16 05:25 Labs (last 24 hours): Laboratory Results - last 24 hr 04/19/16 04/20/16 04/20/16 20:46 05:23 05:25 WBC RBC Hgb Hct MCV MCH MCHC RDW Plt Count MPV Neut % (Auto) Lymph % (Auto) [place] % (Auto) Eos % (Auto) Baso % (Auto) Absolute Neuts (auto) Absolute Lymphs (auto) Puncture Site pH pCO2 pO2 HCO3 Total CO2 Base Excess FiO2 % Mode BiPAP Specimen Drawn By Sodium 140 Potassium 4.4 Chloride 99 Carbon Dioxide 31 Anion Gap 14 BUN 17 Creatinine 0.80 Estimated GFR (MDRD) > 60 Glucose 242 H POC Capillary Glucose 175 H 249 H Calculated Osmolality 279 Calcium 8.7 04/20/16 04/20/16 05:25 05:30 WBC 13.0 H RBC 3.56 L Hgb 11.0 L Hct 32.7 L MCV 92 MCH 30.9 MCHC 33.7 RDW 17.3 H Plt Count 329 MPV 7.6 Neut % (Auto) 89.5 H Lymph % (Auto) 6.6 L [place] % (Auto) 3.5 Eos % (Auto) 0.0 Baso % (Auto) 0.4 Absolute Neuts (auto) 11.57 H Absolute Lymphs (auto) 0.78 Puncture Site Right radial pH 7.330 L pCO2 61.0 H pO2 103.0 H HCO3 32.2 H Total CO2 34.1 H Base Excess 4.5 H FiO2 % 55 Mode BiPAP 14/8 rate 10 Specimen Drawn By Bkl Sodium Potassium Chloride Carbon Dioxide Anion Gap BUN Creatinine Estimated GFR (MDRD) Glucose POC Capillary Glucose Calculated Osmolality Calcium Lab/DI/Studies Reviewed: EKG: NSR, NO ST or ST wave changes noted Chest x-ray Chest x-ray was seen personally patient seems to have bilateral basal in atelectasis versus infiltrates and mild pulmonary vascular congestion Medications Methylprednisolone Sodium Succinate (Solu-Medrol) 60 mg IV Q8H TORRIE Stop: 05/04/16 13:59 Vancomycin HCl 2,000 mg/ (Dextrose) 500 mls @ 150 mls/hr IV Q12H [facility]ORRIE Stop: 04/22/16 20:59 Last Admin: 04/20/16 08:35 Dose: 150 mls/hr Spironolactone (Aldactone) 25 mg PO DAILY TORRIE Stop: 05/03/16 08:59 Last Admin: 04/20/16 08:01 Dose: 25 mg Zolpidem Tartrate (Ambien) 5 mg PO 2100,2200 PRN PRN Reason: Sleep or Insomnia Stop: 05/02/16 16:59 Last Admin: 04/19/16 22:20 Dose: 5 mg Albuterol/Ipratropium (Duoneb) 3 ml NEB Q2H PRN PRN Reason: Wheezing Stop: 05/02/16 16:59 Benzonatate (Tessalon) 100 mg PO Q8H PRN PRN Reason: Cough - Alternative Stop: 05/02/16 16:59 Enoxaparin Sodium (Lovenox) 65 mg SQ DAILY@1800 [facility]RIE Stop: 05/02/16 19:59 Last Admin: 04/19/16 17:22 Dose: 65 mg Famotidine (Pepcid) 40 mg PO DAILY [facility] Stop: 05/03/16 08:59 Last Admin: 04/20/16 08:02 Dose: 40 mg Fluoxetine HCl (Prozac) 60 mg PO DAILY [facility] Stop: 05/03/16 08:59 Last Admin: 04/20/16 08:02 Dose: 60 mg Furosemide (Lasix) 40 mg IV LASBID [facility] Stop: 05/04/16 10:29 Last Admin: 04/20/16 12:05 Dose: 40 mg Insulin Human Regular (Humulin R) 0 units SQ ACHS TORRIE PRN Reason: Protocol Stop: 05/02/16 16:59 Last Admin: 04/20/16 12:05 Dose: 6 unit Guaifenesin (Robitussin) 10 ml PO Q6H PRN PRN Reason: Cough - First Option Stop: 05/02/16 16:59 Levofloxacin/Dextrose (Levaquin 750 Mg) 750 mg in 150 mls @ 100 mls/hr IV Q24H [facility] Stop: 04/26/16 15:59 Last Admin: 04/19/16 15:14 Dose: 100 mls/hr Olanzapine (Zyprexa) 10 mg PO DAILY [facility] Stop: 05/03/16 08:59 Last Admin: 04/20/16 08:01 Dose: 10 mg Piperacillin Sod/Tazobactam (Sod 4.5 gm/ Dextrose) 100 mls @ 200 mls/hr IV Q6H [facility] Stop: 04/25/16 17:59 Last Admin: 04/20/16 12:05 Dose: 200 mls/hr - Assessment/Plan (1) Acute exacerbation of chronic obstructive airways disease Acute J44.1 - CHRONIC OBSTRUCTIVE PULMONARY DISEASE W (ACUTE) EXACERBATION Comment/Plan: I would cut down the Solu-Medrol to 40 mg IV q.8 hours as wheezing has subsided significantly I would continue the current antibiotics DVT and GI prophylaxis continue the patient to be on BiPAP 3 hours on an 3 hours off during the day and then all night he should stay on BiPAP he would be kept in ICU as he remains critically ill and is in danger of dying would start him on gentle diuresis based on his x-ray repeat a chest x-ray and a blood gas in the morning patient appears to be significant Hiren acidotic due to his respiratory issues continue other supportive care prognosis remains guarded (2) Acute respiratory failure Acute J96.00 - ACUTE RESPIRATORY FAILURE, UNSP W HYPOXIA OR HYPERCAPNIA hypoxia J96.01 - Acute respiratory failure with hypoxia Comment/Plan: As mentioned above continue BiPAP continuously nocturnally and 3 hours on an 3 hours off during the day continue oxygen and continue other supportive care as mentioned above (3) Acute bronchitis Acute J20.9 - ACUTE BRONCHITIS, UNSPECIFIED Comment/Plan: I would continue the current antibiotics along with steroids (4) GERD (gastroesophageal reflux disease) Acute K21.9 - GASTRO-ESOPHAGEAL REFLUX DISEASE WITHOUT ESOPHAGITIS without esophagitis K21.9 - Gastro-esophageal reflux disease without esophagitis Comment/Plan: Continue the current therapy I personally saw and evaluated the patient.: Yes Total Face to Face Time: 35 minutes Case Care Discussed with: Patient, Nursing Staff Education/Counseling Given To: Patient Education/Counseling Given Regarding: Diagnosis, Treatment, Prognosis, Follow Up , Disposition Plan
[2016-04-20] MEDS: FUROSEMIDE 40 MG/4 ML VIAL IV SCH ×2 (12:05→17:29)
[2016-04-20] MEDS ORDERED: METHYLPREDNISOLONE 125 MG/2 ML VIAL IV SCH (14:00)
[2016-04-20] MEDS: METHYLPREDNISOLONE 40 MG/1 ML VIAL IV SCH ×2 (14:54→21:37)
[2016-04-20] MEDS: ENOXAPARIN 80 MG/0.8 ML PFS SQ SCH (17:29)
[2016-04-20] MEDS: ZOLPIDEM TARTRATE 5 MG TAB PO PRN ×2 (21:39→22:42)
[2016-04-20] MEDS: CHLORHEXIDINE (HIBICLENS) 4 OZ BOTTLE TOP SCH (22:21)
[2016-04-20] MEDS: ACETAMINOPHEN 325 MG/TAB TABLET PO PRN (22:30)
[2016-04-21] MEDS: PIPERACILLIN AND TAZOBACTAM 4.5 GM in D5W 100 ML IV SCH ×4 (01:08→17:38)
[2016-04-21] MEDS: Albuterol/Ipratropium Neb 3 ML NEB NEB SCH ×4 (01:57→21:31)
[2016-04-21 04:10] LABS: ALLEN'S TEST PASS; BEb 9.3 (+/- 2); TCO2 37.4 MMOL/L (23-27)
[2016-04-21 04:11] LABS: ABG Draw Site Right Radial
[2016-04-21 04:12] LABS: BI-PAP 14/6 cm H2O
[2016-04-21] MEDS: GABAPENTIN 300 MG CAP PO SCH ×3 (06:12→20:59)
[2016-04-21] MEDS: METHYLPREDNISOLONE 40 MG/1 ML VIAL IV SCH ×2 (06:13→17:37)
[2016-04-21] MEDS: REGULAR INSULIN 100 UNITS/ML - 3 ML VIAL SQ SCH ×4 (06:14→21:46)
[2016-04-21] MEDS: ATORVASTATIN 40 MG TAB PO SCH (07:28)
[2016-04-21] MEDS: LISINOPRIL 5 MG TAB PO SCH (07:28)
[2016-04-21] MEDS: FAMOTIDINE 20 MG TAB PO SCH (07:28)
[2016-04-21] MEDS: FLUOXETINE 20 MG CAP PO SCH (07:29)
[2016-04-21] MEDS: OLANZAPINE 5 MG TAB PO SCH (07:29)
[2016-04-21] MEDS: DILTIAZEM HCL 120 MG CAPSULE.CR PO SCH (07:29)
[2016-04-21] MEDS: SPIRONOLACTONE 25 MG TAB PO SCH (07:29)
[2016-04-21] MEDS: ACETAMINOPHEN 325 MG/TAB TABLET PO PRN ×3 (07:29→20:55)
[2016-04-21] MEDS: CARVEDILOL 3.125 MG TAB PO SCH ×2 (07:29→20:59)
[2016-04-21] MEDS: FUROSEMIDE 40 MG/4 ML VIAL IV SCH ×2 (07:30→17:37)
--- NOTE | 2016-04-21 08:04 | DIRPT ---
CLINICAL DATA: Respiratory failure EXAM: PORTABLE CHEST 1 VIEW COMPARISON: Chest x-rays dated 04/20/2016, 04/18/2016 and 03/02/2016. FINDINGS: Mild cardiomegaly is stable. Study is hypoinspiratory with low lung volumes and lordotic. Given these limitations, lungs appear clear. No evidence of pneumonia. No pleural effusion. No evidence of pulmonary edema. No pleural effusions seen. No pneumothorax seen. Left chest wall Port-A-Cath is stable in position with tip overlying the SVC. Again noted is elevation/eventration of the right hemidiaphragm. Osseous and soft tissue structures about the chest are otherwise unremarkable. IMPRESSION: Hypoinspiratory exam. No evidence of acute cardiopulmonary abnormality. Electronically Signed By: Blaze Osborn M.D. On: 04/21/2016 08:02
--- NOTE | 2016-04-21 09:23 | GENMEDPROG ---
Chief Complaint: Improved today. Much more alert Notes Reviewed: Yes Events from last night noted and discussed with Clinical Staff Current Medication List: Reviewed Currently: Reports: Cough, Wheezing, CHILD, SOB. Denies: Nausea and Vomiting, Abdominal Pain DVT Prophylaxis: Yes - Physical Examination Vital Signs and I&O: Last Vital Signs Temp 98.2 F 04/21/16 07:00 Pulse 97 04/21/16 09:00 Resp 20 04/21/16 06:00 BP 146/84 04/21/16 09:00 Pulse Ox 98 04/21/16 09:00 Oxygen Pulse Oxygen Saturation 98 O2 Device Nasal Cannula Oxygen Flow Rate 3 Fraction of Inspired Oxygen ( 45 FIO2) Intake & Output 04/18/16 04/19/16 04/20/16 04/21/16 23:59 23:59 23:59 23:59 Intake Total 657 2109 2891 1135 Output Total 1600 4123 6107 1700 Balance -943 -891 -3259 -565 Patient's weight 130 kg 127.913 kg 126.598 kg 126.598 kg General: Alert, Oriented x3, Cooperative, Moderate distress. negative: Well appearing (Acutely ill-appearing) HEENT: Normal, PERRLA, EOMI, Anicteric Sclera Neck: Non-tender, Full range of motion, Normal Trachea alignment. negative: JVD Lymphatics: Normal (no adenopathy) Respiratory: Diminished, Rhonchi, Tachypnea, Wheezes (Fewer wheezes today) Cardiovascular: Regular rate and rhythm, No Gallops,Rubs/Murmurs GI: Soft, No hepatospenomegaly, No masses, Obese Extremities/Musculoskeletal: Normal pulses. negative: Tenderness, Swelling, Edema Skin: Warm,Dry and Intact, No rashes, No breakdown, No significant lesion Neurological: Normal speech, Strength at 5/5 X4 ext, Normal tone, Cranial nerves 3-12 NL Psych/Mental Status: Cooperative Lab/DI/Studies Reviewed: Laboratory Results - last 24 hr 04/20/16 04/20/16 04/20/16 12:01 17:28 20:38 Puncture Site pH pCO2 pO2 HCO3 Total CO2 Base Excess FiO2 % Mode BiPAP Specimen Drawn By POC Capillary Glucose 292 H 284 H 338 H 04/21/16 04/21/16 04:00 06:09 Puncture Site Right radial pH 7.420 pCO2 55.0 H pO2 113.0 H HCO3 35.7 H Total CO2 37.4 H Base Excess 9.3 H FiO2 % 45 Mode BiPAP 14/6 Specimen Drawn By Sury POC Capillary Glucose 215 H - Assessment (1) Acute respiratory failure Acute J96.00 - ACUTE RESPIRATORY FAILURE, UNSP W HYPOXIA OR HYPERCAPNIA Qualifiers: Respiratory failure complication: hypoxia Qualified Code(s): J96.01 - Acute respiratory failure with hypoxia Comment/Plan: Continues to improve. Still mild hypercapnia but much more alert today. Okay to transfer out of the ICU. Increase activity. Hopefully home 1- 2 days. (2) Acute exacerbation of chronic obstructive airways disease Acute J44.1 - CHRONIC OBSTRUCTIVE PULMONARY DISEASE W (ACUTE) EXACERBATION Comment/Plan: Doing better today. Off BiPAP. Continue IV steroids nebulizer treatments antibiotics and pulmonary toilet (3) Acute bronchitis Acute J20.9 - ACUTE BRONCHITIS, UNSPECIFIED Comment/Plan: Increased cough and congestion. IV antibiotics and pulmonary toilet. (4) GERD (gastroesophageal reflux disease) Acute K21.9 - GASTRO-ESOPHAGEAL REFLUX DISEASE WITHOUT ESOPHAGITIS Qualifiers: Esophagitis presence: without esophagitis Qualified Code(s): K21.9 - Gastro -esophageal reflux disease without esophagitis Comment/Plan: Continue PPI (5) Dyslipidemia Chronic E78.5 - HYPERLIPIDEMIA, UNSPECIFIED Comment/Plan: On Lipitor Case Care Discussed with: Patient, Nursing Staff, Resource Management
--- NOTE | 2016-04-21 09:52 | PCM.PULM ---
Chief Complaint: Uneventful overnight Patient sitting on chair breathing is improving some. On oxygen and wears BIPAP overnight Current medication list and notes reviewed:yes, Events from last night noted and discussed with Clinical Staff DVT/GI prophylaxis:yes - Physical Examination Vital Signs and I&O: Last Vital Signs Temp 98.2 F 04/21/16 07:00 Pulse 97 04/21/16 09:00 Resp 20 04/21/16 06:00 BP 146/84 04/21/16 09:00 Pulse Ox 98 04/21/16 09:00 Oxygen Pulse Oxygen Saturation 98 O2 Device Nasal Cannula Oxygen Flow Rate 3 Fraction of Inspired Oxygen ( 45 FIO2) Intake & Output 04/18/16 04/19/16 04/20/16 04/21/16 23:59 23:59 23:59 23:59 Intake Total 657 2109 2891 1265 Output Total 1600 5576 6172 1700 Balance -943 -891 -3259 -435 Patient's weight 130 kg 127.913 kg 126.598 kg 126.598 kg General: Alert, Oriented x3, No acute distress, Obese, Fatigue (Imrpoving) Respiratory: Diminished, Rhonchi Cardiovascular: Regular rate, Regular rate and rhythm, Normal S1, No Gallops, Rubs/Murmurs, Normal S2 GI: Normal bowel sounds, Soft, Non tender, No hepatospenomegaly, No masses Extremities/Musculoskeletal: Normal pulses Skin: Warm,Dry and Intact, No rashes, No breakdown, No significant lesion Neurological: Normal Steady Gait, Normal speech, Strength at 5/5 X4 ext, Cranial nerves 3-12 NL Psych/Mental Status: Normal Affect Result Diagrams: 04/20/16 05:25 04/20/16 05:25 Labs (last 24 hours): Laboratory Results - last 24 hr 04/21/16 04/21/16 04/21/16 04:00 06:09 08:45 Puncture Site Right radial pH 7.420 pCO2 55.0 H pO2 113.0 H HCO3 35.7 H Total CO2 37.4 H Base Excess 9.3 H FiO2 % 45 Mode BiPAP 14/6 Specimen Drawn By Sury POC Capillary Glucose 215 H Vancomycin Trough 17.4 Lab/DI/Studies Reviewed: EKG: NSR, NO ST or ST wave changes noted Cxray: 1 view Chest x-ray was seen personally patient has no acute infiltrate Medications Temazepam (Restoril) 15 mg PO 2100,2200 PRN PRN Reason: Sleep or Insomnia Stop: 03/10/16 16:59 Last Admin: 02/28/16 20:31 Dose: 15 mg Diltiazem HCl (Cardizem Cd) 120 mg PO DAILY [facility] Stop: 05/03/16 08:59 Last Admin: 04/20/16 08:01 Dose: 120 mg Zolpidem Tartrate (Ambien) 5 mg PO 2100,2200 PRN PRN Reason: Sleep or Insomnia Stop: 05/02/16 16:59 Last Admin: 04/19/16 22:20 Dose: 5 mg Acetaminophen (Tylenol Suppository) 650 mg AK Q6H PRN; Protocol PRN Reason: Mild Pain or Fever above 100.4 Stop: 03/10/16 16:59 Acetaminophen (Tylenol Tablet) 650 mg PO Q6H PRN; Protocol PRN Reason: Mild Pain or Fever above 100.4 Stop: 03/10/16 16:59 Last Admin: 03/01/16 10:17 Dose: 650 mg Albuterol (Proventil, Ventolin) 3 ml NEB Q2H PRN PRN Reason: Wheezing Stop: 03/10/16 06:35 Aspirin (Aspirin, Chewable) 324 mg NG 0800 [facility] Stop: 03/10/16 11:59 Last Admin: 03/01/16 07:51 Dose: 324 mg Atorvastatin Calcium (Lipitor) 40 mg PO DAILY [facility] Stop: 03/10/16 16:59 Last Admin: 03/01/16 07:52 Dose: 40 mg Carvedilol (Coreg) 3.125 mg PO BID [facility] Stop: 03/10/16 16:59 Last Admin: 03/01/16 07:52 Dose: 3.125 mg Enoxaparin Sodium (Lovenox) 70 mg SQ Q24H [facility] Stop: 03/10/16 17:59 Last Admin: 03/01/16 17:39 Dose: 70 mg Guaifenesin/Dextromethorphan (Robitussin Dm) 10 ml PO Q6H PRN PRN Reason: Cough - Alternative Stop: 03/10/16 16:59 Insulin Human Regular (Humulin R) 0 units SQ Q6 [facility] PRN Reason: Protocol Stop: 03/12/16 17:59 Last Admin: 03/01/16 17:39 Dose: 6 units Ipratropium [place] (Atrovent Hfa) 8 puff INH RTQ6 [facility] Stop: 03/10/16 13:59 Last Admin: 03/01/16 13:41 Dose: 8 puff Lisinopril (Zestril) 5 mg PO DAILY [facility] Stop: 03/10/16 16:59 Last Admin: 03/01/16 07:52 Dose: 5 mg Lorazepam (Ativan) 2 mg IV Q30M PRN PRN Reason: Anxiety Stop: 03/12/16 11:09 Last Admin: 03/01/16 13:15 Dose: 2 mg Morphine Sulfate (Morphine Sulfate) 4 mg IV Q2H PRN PRN Reason: Pain-NPO/PO Med Not Effective Stop: 03/03/16 07:22 Last Admin: 03/01/16 03:30 Dose: 4 mg Oxycodone HCl (Oxycodone Immediate Release (Oxyir)) 5 mg PO Q6H PRN PRN Reason: Moderate to Severe Pain Stop: 03/03/16 07:24 Pantoprazole Sodium (Protonix) 40 mg IV Q24H [facility] Stop: 03/04/16 16:59 Last Admin: 03/01/16 09:37 Dose: 40 mg Albuterol/Ipratropium (Duoneb) 3 ml NEB Q2H PRN PRN Reason: Wheezing Stop: 05/02/16 16:59 Benzonatate (Tessalon) 100 mg PO Q8H PRN PRN Reason: Cough - Alternative Stop: 05/02/16 16:59 Enoxaparin Sodium (Lovenox) 65 mg SQ DAILY@1800 [facility] Stop: 05/02/16 19:59 Last Admin: 04/19/16 17:22 Dose: 65 mg Famotidine (Pepcid) 40 mg PO DAILY [facility] Stop: 05/03/16 08:59 Last Admin: 04/20/16 08:02 Dose: 40 mg Fluoxetine HCl (Prozac) 60 mg PO DAILY [facility] Stop: 05/03/16 08:59 Last Admin: 04/20/16 08:02 Dose: 60 mg Furosemide (Lasix) 40 mg IV LASBID [facility] Stop: 05/04/16 10:29 Last Admin: 04/20/16 12:05 Dose: 40 mg Insulin Human Regular (Humulin R) 0 units SQ ACHS [facility] PRN Reason: Protocol Stop: 05/02/16 16:59 Last Admin: 04/20/16 12:05 Dose: 6 unit Guaifenesin (Robitussin) 10 ml PO Q6H PRN PRN Reason: Cough - First Option Stop: 05/02/16 16:59 Olanzapine (Zyprexa) 10 mg PO DAILY [facility] Stop: 05/03/16 08:59 Last Admin: 04/20/16 08:01 Dose: 10 mg Piperacillin Sod/Tazobactam (Sod 4.5 gm/ Dextrose) 100 mls @ 200 mls/hr IV Q6H [facility] Stop: 04/25/16 17:59 Last Admin: 04/20/16 12:05 Dose: 200 mls/hr Methylprednisolone Sodium Succinate (Solu-Medrol) 40 mg IV Q12H [facility] Stop: 05/05/16 17:59 Vancomycin HCl 2,000 mg/ (Dextrose) 500 mls @ 150 mls/hr IV Q12H [facility] Stop: 04/22/16 20:59 Last Admin: 04/21/16 09:48 Dose: 150 mls/hr Diltiazem HCl (Cardizem Cd) 120 mg PO DAILY [facility] Stop: 05/03/16 08:59 Last Admin: 04/21/16 07:29 Dose: 120 mg - Assessment/Plan (1) Acute exacerbation of chronic obstructive airways disease Acute J44.1 - CHRONIC OBSTRUCTIVE PULMONARY DISEASE W (ACUTE) EXACERBATION Comment/Plan: Patient is feeling better and has been improving and therefore is going to go out of ICU I would cut down the Solu-Medrol to 20 mg IV q.8 hours patient has minimal wheezing .continue the current antibiotics DVT and GI prophylaxis continue the patient to be on BiPAP 3 hours on an 3 hours off during the day and then all night he should stay on BiPAP (2) Acute respiratory failure Acute J96.00 - ACUTE RESPIRATORY FAILURE, UNSP W HYPOXIA OR HYPERCAPNIA hypoxia J96.01 - Acute respiratory failure with hypoxia Comment/Plan: As mentioned above continue BiPAP continuously nocturnally and 3 hours on an 3 hours off during the day continue oxygen and continue other supportive care as mentioned above (3) Acute bronchitis Acute J20.9 - ACUTE BRONCHITIS, UNSPECIFIED Comment/Plan: Patient is improving significantly continue the current care (4) GERD (gastroesophageal reflux disease) Acute K21.9 - GASTRO-ESOPHAGEAL REFLUX DISEASE WITHOUT ESOPHAGITIS without esophagitis K21.9 - Gastro-esophageal reflux disease without esophagitis Comment/Plan: Continue the current therapy
[2016-04-21] MEDS: ENOXAPARIN 80 MG/0.8 ML PFS SQ SCH (17:37)
[2016-04-21] MEDS ORDERED: Medication Special Instructions SCH (18:00)
[2016-04-21] MEDS: ZOLPIDEM TARTRATE 5 MG TAB PO PRN (20:59)
[2016-04-21] MEDS: CHLORHEXIDINE (HIBICLENS) 4 OZ BOTTLE TOP SCH (21:40)
[2016-04-22] MEDS: PIPERACILLIN AND TAZOBACTAM 4.5 GM in D5W 100 ML IV SCH ×2 (00:46→05:13)
[2016-04-22] MEDS: Albuterol/Ipratropium Neb 3 ML NEB NEB SCH ×3 (02:08→14:17)
[2016-04-22] MEDS: GABAPENTIN 300 MG CAP PO SCH (05:13)
[2016-04-22] MEDS: REGULAR INSULIN 100 UNITS/ML - 3 ML VIAL SQ SCH ×2 (05:13→12:20)
[2016-04-22] MEDS: METHYLPREDNISOLONE 40 MG/1 ML VIAL IV SCH (05:13)
[2016-04-22 05:29] VITALS: BMI 5469.7
[2016-04-22 05:49] LABS: BLOOD UREA NITROGEN 19 MG/DL (9-20); CALCULATED OSMOLALITY 274 MOs/Kg (270-290); CHLORIDE 93 mEq/L (98-107); GLUCOSE 165 MG/DL (70-99); SODIUM LEVEL 139 mEq/L (137-146)
[2016-04-22] MEDS: FUROSEMIDE 40 MG/4 ML VIAL IV SCH (07:48)
[2016-04-22] MEDS: OLANZAPINE 5 MG TAB PO SCH (07:49)
[2016-04-22] MEDS: ACETAMINOPHEN 325 MG/TAB TABLET PO PRN (07:49)
[2016-04-22] MEDS: DILTIAZEM HCL 120 MG CAPSULE.CR PO SCH (07:50)
[2016-04-22] MEDS: CARVEDILOL 3.125 MG TAB PO SCH (07:50)
[2016-04-22] MEDS: ATORVASTATIN 40 MG TAB PO SCH (07:50)
[2016-04-22] MEDS: LISINOPRIL 5 MG TAB PO SCH (07:50)
[2016-04-22] MEDS: FLUOXETINE 20 MG CAP PO SCH (07:50)
[2016-04-22] MEDS: SPIRONOLACTONE 25 MG TAB PO SCH (07:50)
[2016-04-22] MEDS: FAMOTIDINE 20 MG TAB PO SCH (07:50)
--- NOTE | 2016-04-22 10:23 | PCM.PULM ---
Chief Complaint: Patient breathing is fair. wears BIPAP overnight Current medication list reviewed:yes Notes reviewed:yes, Events from last night noted and discussed with Clinical Staff - Physical Examination Vital Signs and I&O: Last Vital Signs Temp 97.7 F 04/22/16 07:00 Pulse 92 04/22/16 07:00 Resp 18 04/21/16 23:00 BP 145/78 04/22/16 07:00 Pulse Ox 94 04/22/16 08:00 Oxygen Pulse Oxygen Saturation 94 O2 Device Nasal Cannula Oxygen Flow Rate 3 Fraction of Inspired Oxygen ( 45 FIO2) Intake & Output 04/19/16 04/20/16 04/21/16 04/22/16 23:59 23:59 23:59 23:59 Intake Total 2103 2725 3223 764 Output Total 9305 9490 7112 1550 Balance -304 -0419 -3897 -784 Patient's weight 127.913 kg 126.598 kg 126.598 kg 127.051 kg General: Alert, Oriented x3, No acute distress Respiratory: Diminished, Rhonchi Cardiovascular: Regular rate, Regular rate and rhythm, Normal S1, No Gallops, Rubs/Murmurs, Normal S2 GI: Normal bowel sounds, Soft, Non tender, No masses, Obese Extremities/Musculoskeletal: Normal pulses Skin: Warm,Dry and Intact, No rashes, No breakdown, No significant lesion Neurological: Normal Steady Gait, Normal speech, Strength at 5/5 X4 ext, Normal tone, Cranial nerves 3-12 NL Psych/Mental Status: Appropriate Result Diagrams: 04/20/16 05:25 04/22/16 04:55 Labs (last 24 hours): Laboratory Results - last 24 hr 04/22/16 04/22/16 04:53 04:55 Sodium 139 Potassium 3.8 Chloride 93 L Carbon Dioxide 37 H Anion Gap 13 BUN 19 Creatinine 0.80 Estimated GFR (MDRD) > 60 Glucose 165 H POC Capillary Glucose 161 H Calculated Osmolality 274 Calcium 9.0 Lab/DI/Studies Reviewed: EKG: NSR, NO ST or ST wave changes noted Medications Spironolactone (Aldactone) 25 mg PO DAILY [facility] Stop: 05/03/16 08:59 Last Admin: 04/20/16 08:01 Dose: 25 mg Benzonatate (Tessalon) 100 mg PO Q8H PRN PRN Reason: Cough - Alternative Stop: 05/02/16 16:59 Enoxaparin Sodium (Lovenox) 65 mg SQ DAILY@1800 [facility] Stop: 05/02/16 19:59 Last Admin: 04/19/16 17:22 Dose: 65 mg Fluoxetine HCl (Prozac) 60 mg PO DAILY [facility] Stop: 05/03/16 08:59 Last Admin: 04/20/16 08:02 Dose: 60 mg Furosemide (Lasix) 40 mg IV LASBID [facility] Stop: 05/04/16 10:29 Last Admin: 04/20/16 12:05 Dose: 40 mg Insulin Human Regular (Humulin R) 0 units SQ ACHS [facility] PRN Reason: Protocol Stop: 05/02/16 16:59 Last Admin: 04/20/16 12:05 Dose: 6 unit Guaifenesin (Robitussin) 10 ml PO Q6H PRN PRN Reason: Cough - First Option Stop: 05/02/16 16:59 Olanzapine (Zyprexa) 10 mg PO DAILY [facility] Stop: 05/03/16 08:59 Last Admin: 04/20/16 08:01 Dose: 10 mg Piperacillin Sod/Tazobactam (Sod 4.5 gm/ Dextrose) 100 mls @ 200 mls/hr IV Q6H [facility] Stop: 04/25/16 17:59 Last Admin: 04/20/16 12:05 Dose: 200 mls/hr Methylprednisolone Sodium Succinate (Solu-Medrol) 40 mg IV Q12H [facility] Stop: 05/05/16 17:59 Vancomycin HCl 2,000 mg/ (Dextrose) 500 mls @ 150 mls/hr IV Q12H [facility] Stop: 04/22/16 20:59 Last Admin: 04/21/16 09:48 Dose: 150 mls/hr Carvedilol (Coreg) 3.125 mg PO BID [facility] Stop: 05/02/16 20:59 Last Admin: 04/21/16 07:29 Dose: 3.125 mg Diltiazem HCl (Cardizem Cd) 120 mg PO DAILY [facility] Stop: 05/03/16 08:59 Last Admin: 04/21/16 07:29 Dose: 120 mg - Assessment/Plan (1) Acute exacerbation of chronic obstructive airways disease Acute J44.1 - CHRONIC OBSTRUCTIVE PULMONARY DISEASE W (ACUTE) EXACERBATION Comment/Plan: Patient has been improving significantly and therefore I think is about time for patient to go home continue prednisone taper slowly and would continue antibiotics with DVT and GI prophylaxis patient was instructed to stay on BiPAP while he is sleeping and continue other supportive care and would follow the patient as an outpatient within a week or so. (2) Acute respiratory failure Acute J96.00 - ACUTE RESPIRATORY FAILURE, UNSP W HYPOXIA OR HYPERCAPNIA hypoxia J96.01 - Acute respiratory failure with hypoxia Comment/Plan: Patient was instructed to use BiPAP through the night when he is sleeping and use oxygen during the day as needed continue other supportive care prognosis is guarded (3) Acute bronchitis Acute J20.9 - ACUTE BRONCHITIS, UNSPECIFIED Comment/Plan: continue the current care (4) GERD (gastroesophageal reflux disease) Acute K21.9 - GASTRO-ESOPHAGEAL REFLUX DISEASE WITHOUT ESOPHAGITIS without esophagitis K21.9 - Gastro-esophageal reflux disease without esophagitis Comment/Plan: Continue the current therapy
--- NOTE | 2016-04-22 11:32 | GENMEDPROG ---
Chief Complaint: drug OD, COPD, Subjective Note: Patient feels well, took O2 off, but sat dropped to 86-88% at rest. Currently: Reports: Cough, Wheezing, CHILD, SOB, Tobacco Use/Hx. Denies: Nausea and Vomiting, Abdominal Pain DVT Prophylaxis: Yes - Physical Examination Vital Signs and I&O: Last Vital Signs Temp 97.7 F 04/22/16 07:00 Pulse 92 04/22/16 07:00 Resp 18 04/21/16 23:00 BP 145/78 04/22/16 07:00 Pulse Ox 94 04/22/16 08:00 Oxygen Pulse Oxygen Saturation 94 O2 Device Nasal Cannula Oxygen Flow Rate 3 Fraction of Inspired Oxygen ( 45 FIO2) Intake & Output 04/19/16 04/20/16 04/21/16 04/22/16 23:59 23:59 23:59 23:59 Intake Total 2101 6071 3228 766 Output Total 3000 6150 7125 1550 [facility] [phone] -[phone] -784 Patient's weight 127.913 kg 126.598 kg 126.598 kg 127.051 kg General: Alert, Oriented x3, Cooperative, Moderate distress. negative: Well appearing (Acutely ill-appearing) HEENT: Normal, PERRLA, EOMI, Anicteric Sclera, Mucous membr. moist/pink Neck: Non-tender, Full range of motion, Normal Trachea alignment. negative: JVD Lymphatics: Normal (no adenopathy) Respiratory: Diminished, Rhonchi Cardiovascular: Regular rate and rhythm, No Gallops,Rubs/Murmurs GI: Soft, No hepatospenomegaly, No masses, Obese Extremities/Musculoskeletal: Normal pulses. negative: Tenderness, Swelling, Edema Skin: Warm,Dry and Intact, No rashes, No breakdown, No significant lesion Neurological: Normal speech, Strength at 5/5 X4 ext, Normal tone, Cranial nerves 3-12 NL Psych/Mental Status: Cooperative - Assessment (1) Acute exacerbation of chronic obstructive airways disease Acute J44.1 - CHRONIC OBSTRUCTIVE PULMONARY DISEASE W (ACUTE) EXACERBATION Comment/Plan: Doing better today. Off BiPAP. Continue to wean steroids, continue nebulizer treatments, change to PO antibiotics and discharge to home. (2) Acute bronchitis Acute J20.9 - ACUTE BRONCHITIS, UNSPECIFIED Comment/Plan: Decreased cough and congestion. Change to PO antibiotics and discharge home. (3) Acute respiratory failure with hypoxia Acute J96.01 - ACUTE RESPIRATORY FAILURE WITH HYPOXIA Comment/Plan: Patient still requires FiO2. Continue pulmonary toilet. Dr. Chakraborty"s input appreciated. (4) GERD (gastroesophageal reflux disease) Acute K21.9 - GASTRO-ESOPHAGEAL REFLUX DISEASE WITHOUT ESOPHAGITIS Qualifiers: Esophagitis presence: without esophagitis Qualified Code(s): K21.9 - Gastro -esophageal reflux disease without esophagitis Comment/Plan: Continue PPI (5) Leukocytosis Acute D72.829 - ELEVATED WHITE BLOOD CELL COUNT, UNSPECIFIED Qualifiers: Leukocytosis type: L Comment/Plan: Significant elevation of his white blood cells at 20.2 on admission, but gradually improved. Cultures have been negative (except MRSA swab +). Treated empirically with IV ceftriaxone and IV azithromycin x 4 days- will change to PO meds as described above. (6) Dyslipidemia Chronic E78.5 - HYPERLIPIDEMIA, UNSPECIFIED Comment/Plan: On Lipitor Case Care Discussed with: Patient, Nursing Staff Education/Counseling Given To: Patient Education/Counseling Given Regarding: Diagnosis, Treatment, Prognosis Total Time: 45 min Critical Care: No Couseling Time (>50% in counseling/coordination): No Code: 48229 (>30min.)
--- NOTE | 2016-04-22 11:56 | PCM.DCS92 ---
[id number] PULMONARY DISEASE W (ACUTE) EXACERBATION Present on Admission: Yes Comment: Doing better today. Off BiPAP. Continue to wean steroids, continue nebulizer treatments, change to PO antibiotics and discharge to home. (2) Acute bronchitis Acute J20.9 - ACUTE BRONCHITIS, UNSPECIFIED Present on Admission: Yes Comment: Decreased cough and congestion. Change to PO antibiotics and discharge home. (3) Acute respiratory failure with hypoxia Acute J96.01 - ACUTE RESPIRATORY FAILURE WITH HYPOXIA Present on Admission: Yes Comment: Patient still requires FiO2. Continue pulmonary toilet. Dr. Chakraborty" s input appreciated. (4) GERD (gastroesophageal reflux disease) Acute K21.9 - GASTRO-ESOPHAGEAL REFLUX DISEASE WITHOUT ESOPHAGITIS Present on Admission: Yes without esophagitis K21.9 - Gastro-esophageal reflux disease without esophagitis Comment: Continue PPI (5) Leukocytosis Acute D72.829 - ELEVATED WHITE BLOOD CELL COUNT, UNSPECIFIED Present on Admission: Yes leukemoid reaction D72.823 - Leukemoid reaction Comment: Significant elevation of his white blood cells at 20.2 on admission, but gradually improved. Cultures have been negative (except MRSA swab +). Treated empirically with IV ceftriaxone and IV azithromycin x 4 days- will change to PO meds as described above. (6) Dyslipidemia Chronic E78.5 - HYPERLIPIDEMIA, UNSPECIFIED Present on Admission: Yes Comment: On Lipitor Discharge Disposition: Discharge w/ Home Health Discharge Condition: Improved Cognitive Discharge Status: Unimpaired Fuctional Discharge Status: Inability to drive due to severe medical illness, Deconditioning, Dyspnea with ambulation Physician Follow up/Referrals: Joao Diane MD [Primary Care Provider] - Hospital to call w/ appt. Home Medications / New Prescriptions: New Amoxicillin/Potassium Clav [Augmentin 875-125 Tablet] 1 each PO BID #20 tablet Furosemide [Lasix] 40 mg PO DAILY #30 tablet Prednisone [Sterapred Ds] 10 mg PO DIR #48 pack Continue Spironolactone [Aldactone] 25 mg PO DAILY Olanzapine [Zyprexa] 10 mg PO DAILY Fluoxetine HCl 60 mg PO DAILY Aspirin (Enteric Coated) [Halfprin] 81 mg PO DAILY Oxycodone HCl/Acetaminophen [Percocet 10-325 mg Tablet] 1 tab PO Q6H Carvedilol [Coreg] 3.125 mg PO BID Atorvastatin Calcium [Lipitor] 40 mg PO DAILY Alprazolam [Xanax] 0.5 mg PO Q6H Lisinopril [Prinivil] 5 mg PO DAILY Gabapentin 300 mg PO TID Diltiazem HCl [Cartia Xt] 120 mg PO DAILY Famotidine [Pepcid] 40 mg PO DAILY #30 tablet Discharge Home Medication List Alprazolam [Xanax] 0.5 mg PO Q6H 04/18/16 [History Confirmed 04/18/16 Last Taken Unknown] Aspirin (Enteric Coated) [Halfprin] 81 mg PO DAILY 04/18/16 [History Confirmed 04/18/16 Last Taken Unknown] Atorvastatin Calcium [Lipitor] 40 mg PO DAILY 04/18/16 [History Confirmed Last Taken Unknown] Carvedilol [Coreg] 3.125 mg PO BID 04/18/16 [History Confirmed 04/18/16 Last Taken Unknown] Diltiazem HCl [Cartia Xt] 120 mg PO DAILY 04/18/16 [History Confirmed 04/18/16 Last Taken Unknown] Fluoxetine HCl 60 mg PO DAILY 04/18/16 [History Confirmed 04/18/16 Last Taken Unknown] Gabapentin 300 mg PO TID 04/18/16 [History Confirmed 04/18/16 Last Taken Unknown ] Lisinopril [Prinivil] 5 mg PO DAILY 04/18/16 [History Confirmed 04/18/16 Last Taken Unknown] Olanzapine [Zyprexa] 10 mg PO DAILY 04/18/16 [History Confirmed 04/18/16 Last Taken Unknown] Oxycodone HCl/Acetaminophen [Percocet 10-325 mg Tablet] 1 tab PO Q6H 04/18/16 [ History Confirmed 04/18/16 Last Taken Unknown] Spironolactone [Aldactone] 25 mg PO DAILY 04/18/16 [History Confirmed 04/18/16 Last Taken Unknown] Amoxicillin/Potassium Clav [Augmentin 875-125 Tablet] 1 each PO BID #20 tablet 04/22/16 [Rx Last Taken Unknown] Famotidine [Pepcid] 40 mg PO DAILY #30 tablet 04/22/16 [Rx Last Taken Unknown] Furosemide [Lasix] 40 mg PO DAILY #30 tablet 04/22/16 [Rx Last Taken Unknown] Prednisone [Sterapred Ds] 10 mg PO DIR #48 pack 04/22/16 [Rx Last Taken Unknown] O2 Device: Nasal Cannula Oxygen Flow Rate: 2.5 Oxygen to be used after Discharge: Continuous Diet at Discharge: Heart Healthy, Low Salt Activity: As Tolerated Call Office For: Worsening Symptoms, Fever over 101 F Discontinue use of:: Alcohol, All Illegal Substances, All Types of Tobacco - DC Summary Notes Hospital Course Note:: Discharge summary on patient named JOAO AZEVEDO JR admitted to [facility] on 04/18/16 by Cosme Dutton MD. Date of discharge is [04/22/16] . Mr. Joao Azevedo is a 55 year old man who was just discharged from [facility] about 2 weeks ago after hospitalization for pneumonia. He presented here after his fmily found him unconscious on the floor. He had been taking double doses of his pain and anxiety medications according to his family members. Upon arrival he was hypercapneic and hypoxic, and was placed on BiPAP immediately in the ED. He was treated with aggressive pulmonary toilet, and has received nebulization treatments. He is responding well to treatment, and currently is tolerating 2.5 L pr NC, His pain medication and anti-anxiety medications were withheld until he was aalert and orineted, and then resumed at the prescribed dose. He is tolerating the prescribed dose well, without adverse effects. He is to be discharged home today, with strict advice to take his medication only as directed. He is to follow-up with his primary care provider in 1 week. Code: 80237 (>30min.) - Physical Exam Vital Signs: Last Vital Signs Temp 97.7 F 04/22/16 07:00 Pulse 92 04/22/16 07:00 Resp 18 04/21/16 23:00 BP 145/78 04/22/16 07:00 Pulse Ox 94 04/22/16 08:00 Oxygen Pulse Oxygen Saturation 94 O2 Device Nasal Cannula Oxygen Flow Rate 3 Fraction of Inspired Oxygen ( 45 FIO2) Constitutional: No apparent distress, Alert (Awake) Oriented to: Time, Person, Place - HEENT Head: Normal ( normocephalic) Eye: Normal (PERRL, EOMI, Sclera white) Oropharynx: Normal (Pharynx:Moist without exudate,Gums-no swelling) ENT EAC: Normal TMJ: Normal Nose: No Symptoms Reported (septum midline) - Respiratory/Cardiovascular Respiratory: Normal - CTA, Diminished Cardiovascular: Normal - GI Auscultation: Normal (NABS) Palpation: Normal (Soft,No rebound or guarding, non distended) Tenderness: Non tender Gonzalez's Sign: Negative Rectal Exam: Normal - Musculoskeletal Back: Normal (Non-Tender) Extremities: Normal (Normal tone, Pulses 2+ No cyanosis or edema, FROM) - Integumentary Skin: Warm, Dry Lymphatics: Normal (no adenopathy) - Neurologic Memory Impaired: Normal Motor Function: Normal Cranial Nerve: Normal Cerebellar: Normal Mood Description: Normal Thought: Coherent Perception: Normal
[2016-04-22] MEDS ORDERED: HEPARIN 500 UNITS/5 ML (100 UNITS/ML) SYR FLUSH ONE (15:00)
[2016-04-22 15:58] VITALS: BP 144/86; PULSE 94; TEMP 97.9
== END 2016-04-22 15:40 | disposition home health service (06) | DRG 917 ==
LOC: ED 13:26 → ICU 16:20
PROVIDERS: ADMIT Hospitalist; ATTEND Family Medicine
PROC: 039B3ZZ Drainage of Right Radial Artery, Percutaneous Approach (ICD-10-PCS; principal; 2016-04-18)
PROC: 5A09457 Assistance with Respiratory Ventilation, 24-96 Consecutive Hours, Continuous Positive Airway Pressure (ICD-10-PCS; 2016-04-19)
DX: T65.91XA Toxic effect of unspecified substance, accidental (unintentional), initial encounter (principal); J96.01 Acute respiratory failure with hypoxia; J44.0 Chronic obstructive pulmonary disease with (acute) lower respiratory infection; J44.1 Chronic obstructive pulmonary disease with (acute) exacerbation; J20.9 Acute bronchitis, unspecified; K21.9 Gastro-esophageal reflux disease without esophagitis; D72.823 Leukemoid reaction; E78.5 Hyperlipidemia, unspecified; I10 Essential (primary) hypertension; I50.9 Heart failure, unspecified; E78.00 Pure hypercholesterolemia, unspecified; J45.909 Unspecified asthma, uncomplicated; Z85.528 Personal history of other malignant neoplasm of kidney; M19.90 Unspecified osteoarthritis, unspecified site; Z85.118 Personal history of other malignant neoplasm of bronchus and lung; F31.9 Bipolar disorder, unspecified; Z79.899 Other long term (current) drug therapy; Z79.82 Long term (current) use of aspirin; F17.210 Nicotine dependence, cigarettes, uncomplicated; Z23 Encounter for immunization
CPT/HCPCS: 36415; 36600; 71010; 80048; 80053; 80202; 80307; 81001; 82803; 82962; 83605; 84484; 85025; 85610; 85730; 87040; 87086; 87641; 90471; 90656; 93005; 94640; 94660; 96372; 97161; 99284; G0237; J1642; J1650; J1940; J1956; J2543; J2920; J2930; J3370; J3490; J7060; J7620